=== PATIENT | male | born 1985 | race Caucasian/White ===

== ENCOUNTER → 2024-05-29 | Outpatient (CLI) | payer OTHER, SELFPAY ==
--- NOTE | 2024-05-29 | FLU_PTH ---
PATIENT: ZEINA WARREN LOC: [facility] U#:[id number] AGE/SX: 38/M ROOM: RE05/29/[address]: Dr. Rico Barajas II, MD : 1985 BED: DIS: 05/29/2024 SPEC #: [id number] RECD: 05/29/24 12:30 STATUS: ANNIKAShaina ROSAS #: [id number] JESSICA: 05/29/24 00:[address]: Rico Barajas II DEPT: CYTOLOGY RECD BY: Fanta Samaniego ENTERED: 05/29/24 13:48 SP TYPE: Fluid OTHR DR: No Primary Care Phys Tissues: Cytologic material, NOS Procedures: Special Stain Group II Surgery Specimen Level IV Cytospin Fluid HEADER OPERATION: Post vasectomy PRE-OP DIAGNOSIS: Post vasectomy status TISSUE SUBMITTED: Seminal fluid for cytology DIAGNOSIS CYTOLOGY Seminal fluid for cytology (cytospin): No spermatozoa identified. AM/mr 05/30/2024 CYTOLOGY STUDY Slides are reviewed. CYTOLOGY GROSS Received is 4.0 ml of opaque viscous fluid labeled with the patient's name and and designated per the requisition as Seminal fluid. Submitted for cytology preparation including cell block. Mr 05/29/2024 TC:5 CPT: 19174
[2024-05-29 12:16] LABS: Cytology, Semen SEE PATHOLOGY REPORT
== END | disposition home or self-care (01) ==
LOC: LAB 11:53 → LABSPEC 11:56
PROVIDERS: Referring Provider Urology; Visit Provider Urology
DX: Z30.8 Encounter for other contraceptive management (principal)
CPT/HCPCS: 88108; 88305; 88313

== ENCOUNTER 2024-12-14 14:16 | Emergency (ER) | payer SELFPAY ==
[2024-12-14 14:16] VITALS: BP 112/63; PULSE 57; RESP 22; TEMP 36.2; O2SAT 98; BMI 23.6
--- NOTE | 2024-12-14 14:31 | CT_ITS ---
PROCEDURE: ABDOMEN/PELVIS WITHOUT CONT REASON FOR EXAM: 39-year-old male, left flank pain. TECHNIQUE: Abdomen and pelvis CT without intravenous contrast. No oral contrast. COMPARISON: None. FINDINGS: Noncontrast technique limits evaluation of the abdominal and pelvic viscera. Lung bases: The heart is normal in size. Basilar atelectasis. Liver: The unopacified liver is normal in size. No biliary ductal dilation. Gallbladder: No radiopaque stones within the gallbladder. Spleen: Unremarkable. Pancreas: Unremarkable. Adrenals: Unremarkable. Kidneys/bladder: No right hydronephrosis or nephrolithiasis. Mild left hydroureteronephrosis with calcification within the left ureterovesical junction, measuring 5 mm. The urinary bladder is otherwise unremarkable. Reproductive Organs: Unremarkable. Bowel: The bowel loops are normal in caliber. No ascites or pneumoperitoneum. Normal appendix. Lymph nodes: No suspicious lymph node enlargement. Vasculature: Major vascular structures are unremarkable. Bones: Partially visualized crhis and screw fixation of the left femur. No aggressive osseous lesions. CT/Abdomen/Pelvis without Cont IMPRESSION: Left ureteric stone within the ureterovesical junction, measuring 5 mm. Mild l eft hydroureteronephrosis. Otherwise unremarkable CT abdomen pelvis. One or more dose reduction techniques were used (e.g., Automated exposure contr ol, adjustment of the mA and/or kV according to patient size, use of iterative reconstruction technique). Reading Location: [facility]
--- NOTE | 2024-12-14 14:33 | EDS_ITS ---
<Statement entered by Vicente Gibbs DO - 12/17/24 08:44> Patient was seen and examined with physician child care assistant Kellie All components of the history and physical confirmed and agreed. History of present illness and physical exam: Patient is a 39-year-old male no known significant past medical history who presented to the emergency department chief complaint of left lower back pain wrapping around to his anterior abdomen. Patient states that approximate hour ago he was play video games when all of a sudden the pain started. He states his pain is a 8 out of 10. He denies any history of kidney stones. Review of systems: Agree with above Physical exam: Agree with above MDM Patient is a 39-year-old male who presented to the emergency department chief complaint of left lower back pain wrapping to the anterior portion of his left lower abdomen. On the differential diagnosis includes but not limited to urolithiasis, UTI, pyelonephritis, musculoskeletal strain, AAA although do have low suspicion for this at this point time as he is non-smoker and 39 years old. Patient CBC showed a white count of 12,000, hemoglobin stable 14.8, plate count to be 331. Patient sodium 130, potassium normal 3.6, creatinine normal 0.99. Patient's urinalysis showed 250 blood however no evidence of infection there was 25-50 red blood cells noted on microscopic exam. Patient CT scan was reviewed and showed a 5 mm stone at the left ureterovesicular junction with mild left hydronephrosis. Did discuss results with the patient he is feeling better he would like to go home at this point time. Patient was given prescriptions for Flomax, Percocet and Zofran and was advised to also use Tylenol and ibuprofen for mild to moderate pain. He is encouraged to follow-up with his primary care physician and urology in outpatient setting. He is agreeable this plan as well as his significant other at bedside all question concerns answered he is discharged home in stable condition. Final impression: Left urolithiasis Left hydronephrosis Disposition: Patient will be discharged home in stable condition Supervising attending attestation: Vicente Gibbs D.O. [facility] History of Present Illness Chief Complaint: Flank Pain Narrative Narrative: 39-year-old male with no past medical history states he had vague left lower back pain over the last few days but did not think much of it. About an hour ago he was playing videogames when he had sudden onset left flank pain that is radiating to the left lower abdomen. He also feels slight burning at the tip of his penis with urination. He denies fever, chills, nausea or vomiting. No history of abdominal surgery or kidney stones. PFSH PFSH Home Medications ?Medication ?Instructions ?Recorded ?Last Taken ?Type ondansetron 4 mg disintegrating 4 mg PO Q6H PRN PRN Na usea #12 tabs 12/14/24 Unknown Rx tablet oxycodone-acetaminophen 5 mg-325 1 tab PO Q6H 3 days # 12 tabs 12/14/24 Unknown Rx mg tablet (Percocet) tamsulosin 0.4 mg capsule (Flomax) 0.4 mg PO DAILY 14 days #14 caps 12/14/24 Unknown Rx Allergy/AdvReac Type Severity Reaction Status Date / Time clarithromycin (From Biaxin) Allergy Unknown Verified 12/14/24 14:21 Penicillins Allergy Unknown Verified 12/14/24 14:21 Social History Smoking Status: Heavy Smoker (>10/day) ROS ROS ED ROS Narrative Constitutional: Negative for fever, chills, malaise. CVS: Negative for chest pain. Respiratory: Negative for shortness of breath. GI: Positive for abdominal pain. Negative for vomiting, diarrhea, constipation, melena, hematochezia. : Negative for hematuria or frequency. EXAM Physical Exam Narrative Exam Narrative: CONST: Patient sitting in no acute distress. EYES: Normal inspection.
--- NOTE | 2024-12-14 14:33 | EX.ED.DYSGE1 ---
HPI History of Present Illness Chief Complaint: Flank Pain Narrative Narrative: 39-year-old male with no past medical history states he had vague left lower back pain over the last few days but did not think much of it. About an hour ago he was playing videogames when he had sudden onset left flank pain that is radiating to the left lower abdomen. He also feels slight burning at the tip of his penis with urination. He denies fever, chills, nausea or vomiting. No history of abdominal surgery or kidney stones. PFSH PFSH Home Medications ?Medication ?Instructions ?Recorded ?Last Taken ?Type ondansetron 4 mg disintegrating 4 mg PO Q6H PRN PRN Nausea #12 tabs 12/14/24 Unknown Rx tablet oxycodone-acetaminophen 5 mg-325 1 tab PO Q6H 3 days #12 tabs 12/14/24 Unknown Rx mg tablet (Percocet) tamsulosin 0.4 mg capsule (Flomax) 0.4 mg PO DAILY 14 days #14 caps 12/14/24 Unknown Rx Allergy/AdvReac Type Severity Reaction Status Date / Time clarithromycin (From Biaxin) Allergy Unknown Verified 12/14/24 14:21 Penicillins Allergy Unknown Verified 12/14/24 14:21 Social History Smoking Status: Heavy Smoker (>10/day) ROS ROS ED ROS Narrative Constitutional: Negative for fever, chills, malaise. CVS: Negative for chest pain. Respiratory: Negative for shortness of breath. GI: Positive for abdominal pain. Negative for vomiting, diarrhea, constipation, melena, hematochezia. : Negative for hematuria or frequency. EXAM Physical Exam Narrative Exam Narrative: CONST: Patient sitting in no acute distress. EYES: Normal inspection. NECK: Normal inspection. RESP: No respiratory distress, CTAB. CVS: Regular rate and rhythm, no murmur, no gallop. ABD: Soft and nontender, no guarding or rebound, nondistended, no hepatosplenomegaly. Back: Normal inspection, left CVA tenderness. SKIN: Color normal, no rash, warm, dry, intact. EXTREMITIES: Normal appearance, no pedal edema. NEURO: Alert and answering questions appropriately. PSYCH: Normal affect. Const Vital Signs: 12/14/24 14:16 12/14/24 15:16 12/14/24 16:00 Temperature 97.1 F L Temperature Source Temporal Pulse Rate 57 L 76 66 Respiratory Rate 22 H 26 H 23 H Blood Pressure 112/63 141/85 H 109/61 Blood Pressure Mean 79 103 77 Pulse Ox 98 Oxygen Delivery Method Room Air Room Air Room Air 12/14/24 16:04 Temperature 97.1 F L Temperature Source Pulse Rate 66 Respiratory Rate 23 H Blood Pressure 109/61 Blood Pressure Mean 77 Pulse Ox 98 Oxygen Delivery Method MDM MDM MDM Narrative Medical decision making narrative: History gathered from: Patient and significant other Differential includes but not limited to kidney stone, pyelonephritis, intra-abdominal process 39-year-old male has had mild left low back pain over the last few days but then developed sudden onset left flank pain rating to the left lower abdomen. He appears uncomfortable but nontoxic. Vital signs stable. Exam is notable for left CVA tenderness. He has a soft, benign abdomen. CBC shows WBC of 12.1 otherwise normal. BMP unremarkable. Urinalysis has 25-50 RBCs but no infection. CT scan shows a 5 mm obstructive stone at the left UVJ with mild left hydroureteronephrosis. Patient pain is adequately controlled after IV morphine, Toradol, and Zofran. He is comfortable with outpatient management and the stone of this size should pass without intervention. Prescribed Percocet, Zofran, and Flomax and discussed return precautions. He was discharged in stable condition. Lab Data Attestation: I reviewed the patient's lab results. Labs: Laboratory Results - last 24 hr 12/14/24 14:58 WBC 12.1 H RBC 5.09 Hgb 14.8 Hct 42.2 MCV 82.9 MCH 29.1 MCHC 35.1 RDW Std Deviation 38.5 RDW Coeff of Kashif 12.7 Plt Count 331 MPV 10.5 Immature Gran % (Auto) 0.300 Neut % (Auto) 53.7 Lymph % (Auto) 37.0 [place] % (Auto) 7.3 Eos % (Auto) 1.2 Baso % (Auto) 0.5 Absolute Neuts (auto) 6.5 Absolute Lymphs (auto) 4.47 Nucleated RBC % 0 Sodium 138 Potassium 3.6 Chloride 104 Carbon Dioxide 21.1 Anion Gap 13 BUN 13 Creatinine 0.99 Estim Creat Clear Calc 99.19 Est GFR (MDRD) Non-Af 99 BUN/Creatinine Ratio 12.9 Glucose 140 H Calcium 9.6 Urine Color Yellow Urine Clarity Clear Urine pH 6.0 Ur Specific [place] 1.020 Urine Protein 30 H Urine Glucose (UA) Normal Urine Ketones Negative Urine Occult Blood 250 H Urine Nitrite Negative Urine Bilirubin Negative Urine Urobilinogen Normal Ur Leukocyte Esterase 25 H Urine RBC 25-50 SEEN Urine WBC 0 SEEN Ur Squamous Epith Cells 0 SEEN Urine Bacteria 0 SEEN Urine Mucus 0 SEEN Radiography Diagnostic Testing: Clinical Impression(s) from Imaging Studies Abdomen/Pelvis CT 12/14/24 14:31 IMPRESSION: Left ureteric stone within the ureterovesical junction, measuring 5 mm. Mild left hydroureteronephrosis. Otherwise unremarkable CT abdomen pelvis. One or more dose reduction techniques were used (e.g., Automated exposure control, adjustment of the mA and/or kV according to patient size, use of iterative reconstruction technique). Reading Location: [facility] Discharge Plan Triage Chief Complaint: Flank Pain ED Midlevel Provider: Kellie Lopez ED Provider: Vicente Gibbs Dx/Rx/DC Orders Clinical Impression: Calculus of left kidney, Left flank pain Instructions: ED Kidney Stone with Pain Prescriptions: New ondansetron 4 mg tablet,disintegrating 4 mg PO Q6H PRN PRN (Reason: Nausea) Qty: 12 0RF tamsulosin [Flomax] 0.4 mg capsule 0.4 mg PO DAILY 14 Days Qty: 14 0RF oxycodone-acetaminophen [Percocet] 5-325 mg tablet 1 tab PO Q6H 3 Days Qty: 12 0RF Primary Care Provider: Care Physician,No Primary Referrals: Care Physician,No Primary [Primary Care Provider] - Activity Restrictions/Additional Instructions: You have a left sided kidney stone that is 5 mm. It is in the ureter right before your bladder. The size stone should pass on its own. You can take [id number] ibuprofen 600 mg every 6 hours in addition to the prescribed Percocet and nausea medicine. If your symptoms worsen or you develop a fever or inability to urinate then come back to the emergency room. Print Language: Portuguese Disposition Disposition: Home, Self Care Discharge Date/Time: 12/14/24 16:13
[2024-12-14] MEDS: Ketorolac 15 MG/ML Vial IV (14:46)
[2024-12-14] MEDS: 0.9% Normal Saline (1000mL) 1,000 ML 999 ML IV (14:47)
[2024-12-14 15:05] LABS: Bacteria 0 SEEN /hpf (None Seen); Mucous, Urine 0 SEEN /hpf (<or=2+); Squamous Epithelial Cells - UA 0 SEEN /hpf (0-5); White Blood Cells 0 SEEN /hpf (0-5)
[2024-12-14 15:15] LABS: Absolute Lymphocyte Count 4.47 X10^3/uL (0.83-4.51); Absolute Neutrophil Count 6.5 X10^3/uL (2.0-7.7); Basophil# 0.06 X10^3/uL; Basophil% 0.5 % (0-1); Color, Urine Yellow (Yellow); Eosinophil# 0.15 X10^3/uL; Eosinophils% 1.2 % (0-5); Glucose, Dipstick Normal (Normal); Hematocrit 42.2 % (40-54); Hemoglobin 14.8 g/dL (13.0-16.5); Ketone-Dipstick Negative (Negative); Leukocyte Esterase-Dipstick 25 /ul (Negative); Lymphocyte # 4.47 X10^3/ul (0.83-4.51); Mean Corp Hgb Conc 35.1 g/dL (32-36); Mean Corpuscular Hgb 29.1 pg (27.0-32.0); Mean Corpuscular Volume 82.9 fL (80-94); Mean Platelet Vol. 10.5 fl (6.2-12.0); Monocyte# 0.88 X10^3/uL; Monocyte% 7.3 % (0-10); NRBC Flagged by Analyzer 0 % (0-5); Neutrophil # 6.47 X10^3/uL (2.7-7.7); Neutrophil % 53.7 % (47-70); Nitrite-Dipstick Negative (Negative); Occult Blood-Urine 250 /ul (Negative); Platelet Count 331 K/mm3 (150-450); Protein-Dipstick 30 mg/dl (Negative); RBC Distribution Width CV 12.7 % (11.6-14.6); RBC Distribution Width SD 38.5 fl (35.1-43.9); Red Blood Count 5.09 M/mm3 (4.6-6.2); Urine Bilirubin Dipstick Negative (Negative); Urine Clarity Clear (Clear); Urine Urobilinogen Normal (Normal); White Blood Count 12.1 K/mm3 (4.4-11.0)
[2024-12-14 15:16] VITALS: BP 141/85; PULSE 76; RESP 26
[2024-12-14 15:20] LABS: Red Blood Cells-Urine 25-50 SEEN /hpf (0-5)
[2024-12-14] MEDS: Ondansetron 4 MG/2 ML Vial IV (15:48)
[2024-12-14] MEDS: Morphine 4 MG/ML Syringe IV (15:49)
[2024-12-14 15:56] LABS: Anion Gap 13 (5-15); BUN 13 mg/dL (4-19); BUN/Creat Ratio 12.9 RATIO (10-20); Calcium,Total 9.6 mg/dL (7.6-11.0); Carbon Dioxide 21.1 mmol/L (21.0-32.0); Chloride 104 mmol/L (98-108); Creatinine, Serum 0.99 mg/dL (0.70-1.20); EST Glomerular Filtration Rate 99 (>60); Estimated Creatinine Clearance 99.19 ml/min (50-250); Glucose 140 mg/dL (70-99); Potassium 3.6 mmol/L (3.3-5.1); Sodium Level 138 mmol/L (133-145)
[2024-12-14 16:00] VITALS: BP 109/61; PULSE 66; RESP 23
[2024-12-14 16:04] VITALS: BP 109/61; PULSE 66; RESP 23; TEMP 36.2; O2SAT 98
== END 2024-12-14 16:13 | disposition home or self-care (01) ==
PROVIDERS: Physician Assistant; Emergency Provider Emergency Medicine; Visit Provider Emergency Medicine
DX: N13.2 Hydronephrosis with renal and ureteral calculous obstruction (principal); F17.200 Nicotine dependence, unspecified, uncomplicated
CPT/HCPCS: 74176; 80048; 81001; 85025; 96361; 96374; 96375; 99282; A4216; J2405